=== PATIENT | female | born 1990 | race Caucasian/White ===

== ENCOUNTER → 2016-08-25 | Outpatient (CLI) | payer OTHER ==
--- NOTE | 2016-08-25 16:01 | MR ---
EXAMINATION TYPE: MR sacroiliac joints wo/w con DATE OF EXAM: 08/25/2016 3:41 PM COMPARISON: Sacrum and coccyx x-ray November 13, 2015. HISTORY: History of fibromyalgia presents with back pain, and sacroiliac joint pain per patient. Sacr oiliitis per order. CONTRAST: Standard multiplanar, multisequence MRI departmental protocol utilizing 20 mL intravenous MultiHance gadolinium contrast. Exam is performed of the pelvis focus on sacroiliac joints. FINDINGS: Sacroiliac joints appear symmetric and felt within normal limits. Bone marrow signal intens ity shows no suspicious edema or enhancement. No significant erosive or cystic changes identified. No significant spurring is seen. Visualized portion of bladder is within normal limits. Visualized portion of uterus and cervix is fel t unremarkable. Both ovaries are seen and are normal in size with scattered peripheral follicles. Vis ualized bowel shows no suspicious dilatation. No concerning pelvic adenopathy is seen. No worrisome p elvic fluid collection is noted. IMPRESSION: No MRI evidence for acute or chronic inflammatory change identified at level of the sacroiliac joints .
== END | disposition home or self-care (01) ==
LOC: RADMRIMAIN 14:22
PROVIDERS: ATTEND Internal Medicine Rheumatology
DX: M46.1 Sacroiliitis, not elsewhere classified (principal)
CPT/HCPCS: 72197; A9577

== ENCOUNTER 2016-10-10 13:09 | Emergency (ER) | payer OTHER ==
[2016-10-10 13:45] VITALS: BP 117/80; PULSE 86; RESP 16; TEMP 98.1
--- NOTE | 2016-10-10 14:33 | ED ---
Lower Extremity Injury HPI - General Chief Complaint: Extremity Injury, Lower Stated Complaint: Foot Pain/Fall Time Seen by Provider: 10/10/16 14:18 Source: patient, RN notes reviewed Mode of arrival: wheelchair Limitations: no limitations - History of Present Illness Initial Comments: This a 26-year-old female presents emergency Department chief complaint left foot pain. She states that she was going down her porch steps states that she twisted her foot and states that she has lateral foot pain. There is some bruising and swelling noted. Patient had no prior fractures. Patient denies any numbness or tingling. Denies any head injury no LOC and denies any other muscle skeletal injuries. - Related Data Home Medications Medication Instructions Recorded Confirmed Ergocalciferol [Vitamin D2] 50,000 unit PO Q30D 10/10/16 10/10/16 Previous Rx's Medication Instructions Recorded Hydrocodone/Acetaminophen [[place] 1 tab PO Q6HR PRN #15 tab 10/10/16 5-325] Allergies Allergy/AdvReac Type Severity Reaction Status Date / Time Penicillins Allergy Unknown Verified 10/10/16 14:43 Sulfa (Sulfonamide Allergy Unknown Verified 10/10/16 14:43 Antibiotics) Review of Systems ROS Statement: Those systems with pertinent positive or pertinent negative responses have been documented in the HPI. ROS Other: All systems not noted in ROS Statement are negative. Past Medical History Past Medical History: No Reported History History of Any Multi-Drug Resistant Organisms: None Reported Past Surgical History: No Surgical Hx Reported Past Psychological History: No Psychological Hx Reported Smoking Status: Never smoker Past Alcohol Use History: None Reported Past Drug Use History: None Reported General Exam Limitations: no limitations General appearance: alert, in no apparent distress Respiratory exam: Present: normal lung sounds bilaterally. Absent: respiratory distress, wheezes, rales, rhonchi, stridor Cardiovascular Exam: Present: regular rate, normal rhythm, normal heart sounds. Absent: systolic murmur, diastolic murmur, rubs, gallop, clicks Extremities exam: Present: other (Left foot there is a large area of ecchymosis noted over the lateral to mid foot there is tenderness over this area there is no digit tenderness there is good capillary refill less than 2 seconds there is no tenderness over left ankle over the malleolus.) Skin exam: Present: warm, dry, intact, normal color. Absent: rash Course Vital Signs 10/10/16 13:42 Temperature 98.1 F Pulse Rate 86 Respiratory 16 Rate Blood Pressure 117/80 O2 Sat by Pulse 99 Oximetry Procedures - Orthopedic Splinting/Casting Injury #1 Side: left Lower Extremity Injury Location: foot Lower Extremity Immobilizer: posterior splint (Short leg neurovascular Intact before and after procedure) Medical Decision Making - Medical Decision Making 26-year-old female presented for left foot pain. There is a fracture noted of the fifth metatarsal. Patient was placed in a OCL splint will follow-up with on -call orthopedics. Return parameters discussed. Disposition Clinical Impression: Foot fracture, left Disposition: HOME SELF-CARE Condition: Stable Instructions: Foot Fracture in Adults (ED) Additional Instructions: Please return to the Emergency Department if symptoms worsen or any other concerns. Prescriptions: Hydrocodone/Acetaminophen [[place] 5-325] 1 tab PO Q6HR PRN #15 tab PRN Reason: Pain Referrals: Tameka Washburn MD [Primary Care Provider] - 1-2 days Eze White MD [STAFF PHYSICIAN] - 1-2 days Time of Disposition: 15:18
--- NOTE | 2016-10-10 14:59 | XR ---
EXAMINATION TYPE: XR foot complete LT DATE OF EXAM: 10/10/2016 CLINICAL HISTORY: Trip and fall injury last night with pain TECHNIQUE: Frontal, lateral, and oblique images of the left foot are obtained. COMPARISON: None FINDINGS: There is flexion and varus positioning of distal third through fifth toes. Additional flexi on in second toe is present. There is acute oblique nondisplaced fracture distal diaphysis fifth meta tarsal seen on AP and oblique images. The joint spaces in the left foot appear within normal limits. Bipartite first medial sesamoid noted. The overlying soft tissue appears unremarkable. IMPRESSION: There is acute nondisplaced oblique fracture distal diaphysis fifth metatarsal in left f oot. (Initial encounter closed type post traumatic fracture)
== END 2016-10-10 15:53 | disposition home or self-care (01) ==
LOC: EC 13:09
DX: S92.355A Nondisplaced fracture of fifth metatarsal bone, left foot, initial encounter for closed fracture (principal); Z88.0 Allergy status to penicillin; Z88.2 Allergy status to sulfonamides; Z79.899 Other long term (current) drug therapy; X50.9XXA Other and unspecified overexertion or strenuous movements or postures, initial encounter
CPT/HCPCS: 29515; 99283

== ENCOUNTER → 2016-11-07 | Outpatient (CLI) | payer OTHER ==
--- NOTE | 2016-11-07 15:49 | CT ---
EXAMINATION TYPE: CT foot LT wo con DATE OF EXAM: 11/07/2016 COMPARISON: Left foot x-ray October 10, 2016. Outside left foot x-ray November 03, 2016 HISTORY: F/U for 5th metatarsal fx CT DLP: 232 mGycm Automated exposure control for dose reduction was used. FINDINGS: There is persistent linear lucency consistent with acute comminuted minimally displaced fracture thro ugh the fifth metatarsal head. No significant interval healing or change in alignment is present. Mil d adjacent subcutaneous edema along lateral margin is present. Remainder of left foot shows flexion in the toes without additional acute fracture or dislocation. Li sfranc joints are maintained. Normal sinus tarsi fat is seen. Peroneal tendons are felt intact seen b est on sagittal images though there is some thickening and increased signal in the brevis tendon note d at level of lateral malleolus suggesting tendinosis and tenosynovitis. IMPRESSION: ABOVE
== END | disposition home or self-care (01) ==
LOC: RADCTMAIN 15:04
PROVIDERS: ATTEND Orthopaedic Surgery
DX: S92.355D Nondisplaced fracture of fifth metatarsal bone, left foot, subsequent encounter for fracture with routine healing (principal)

== ENCOUNTER 2016-11-27 16:04 | Emergency (ER) | payer OTHER ==
[2016-11-27 16:15] VITALS: RESP 18
--- NOTE | 2016-11-27 16:46 | ED ---
Lower Extremity Injury HPI - General Chief Complaint: Extremity Injury, Lower Stated Complaint: fall/foot pain Time Seen by Provider: 11/27/16 16:16 Source: patient Mode of arrival: ambulatory Limitations: no limitations - History of Present Illness Initial Comments: 26-year-old presents with right ankle foot pain and left knee pain that occurred just prior to arrival. Patient states she slipped on some ice at [place] and fell directly on her left knee and rolled her right ankle everted it. Patient states she has had a history of a right foot fracture in the past. Patient states she has not really been able to ambulate. No numbness or tingling. Patient has been icing it but no medications have been used. Patient denies any hip pain head and neck are back pain. MD Complaint: knee injury (left), ankle injury (ankle) Context: fall Treatments Prior to Arrival: cold therapy - Related Data Home Medications Medication Instructions Recorded Confirmed Cholecalciferol [Vitamin D3] 1,000 unit PO DAILY 11/27/16 11/27/16 Previous Rx's Medication Instructions Recorded Acetaminophen with Codeine 1 each PO Q4H PRN #20 tab 11/27/16 [Tylenol w/codeine #3] Ibuprofen [Motrin] 600 mg PO Q6HR PRN #20 tab 11/27/16 Allergies Allergy/AdvReac Type Severity Reaction Status Date / Time Penicillins Allergy Unknown Verified 11/27/16 16:56 Sulfa (Sulfonamide Allergy Unknown Verified 11/27/16 16:56 Antibiotics) Review of Systems ROS Statement: Those systems with pertinent positive or pertinent negative responses have been documented in the HPI. ROS Other: All systems not noted in ROS Statement are negative. Neurological: Reports: abnormal gait. Denies: weakness, numbness, paresthesias Past Medical History Past Medical History: No Reported History History of Any Multi-Drug Resistant Organisms: None Reported Past Surgical History: No Surgical Hx Reported Past Psychological History: No Psychological Hx Reported Smoking Status: Never smoker Past Alcohol Use History: None Reported Past Drug Use History: None Reported General Exam Limitations: no limitations General appearance: alert, in no apparent distress Left Upper Leg exam: Present: normal inspection, full ROM. Absent: tenderness, swelling Knee exam: Present: normal inspection, full ROM, tenderness (patellar). Absent : swelling, abrasion Lower Leg exam: Present: normal inspection, full ROM. Absent: tenderness, abrasion Right Hip exam: Present: normal inspection, full ROM. Absent: tenderness, swelling Upper Leg exam: Present: normal inspection, full ROM. Absent: tenderness, swelling Knee exam: Present: normal inspection, full ROM. Absent: tenderness, swelling Lower Leg exam: Present: normal inspection, full ROM. Absent: tenderness, swelling Ankle exam: Present: normal inspection, tenderness (lateral), swelling (lateral) . Absent: full ROM Foot/Toe exam: Present: normal inspection, full ROM, tenderness (lateral), swelling (lateral) Neurological exam: Present: alert, oriented X3, CN II-XII intact Psychiatric exam: Present: normal affect, normal mood Skin exam: Present: warm, dry, intact, normal color. Absent: rash Course Vital Signs 11/27/16 16:12 Temperature 98.0 F Pulse Rate 99 Respiratory 18 Rate Blood Pressure 128/83 O2 Sat by Pulse 98 Oximetry Medical Decision Making - Medical Decision Making Reviewed x-ray negative for any acute changes. Patient be given Aircast Disposition Clinical Impression: Ankle sprain, Contusion Disposition: HOME SELF-CARE Condition: Good Instructions: Ankle Sprain (ED), Foot Contusion (ED) Prescriptions: Ibuprofen [Motrin] 600 mg PO Q6HR PRN #20 tab PRN Reason: Pain Acetaminophen with Codeine [Tylenol w/codeine #3] 1 each PO Q4H PRN #20 tab PRN Reason: Pain Referrals: Tameka Washburn MD [Primary Care Provider] - 1-2 days Eze White MD [STAFF PHYSICIAN] - 1-2 days Time of Disposition: 17:06
--- NOTE | 2016-11-27 16:58 | XR ---
EXAMINATION TYPE: XR knee 4V LT DATE OF EXAM: 11/27/2016 COMPARISON: NONE HISTORY: Pain after a fall TECHNIQUE: 4 views FINDINGS: I see no fracture nor dislocation. Joint spaces are normal. There is no sign of a joint eff usion. IMPRESSION: Normal left knee
--- NOTE | 2016-11-27 16:59 | XR ---
EXAMINATION TYPE: XR ankle complete RT DATE OF EXAM: 11/27/2016 COMPARISON: NONE HISTORY: Pain TECHNIQUE: 3 views FINDINGS: I see no fracture nor dislocation. Ankle mortise is anatomic. IMPRESSION: Negative right ankle exam.
--- NOTE | 2016-11-27 17:00 | XR ---
EXAMINATION TYPE: XR foot complete RT DATE OF EXAM: 11/27/2016 COMPARISON: NONE HISTORY: Pain after a fall TECHNIQUE: 3 views FINDINGS: There is an old fracture of the distal fifth metatarsal. I see no acute fracture nor disloc ation. Joint spaces are normal. There are no erosions. IMPRESSION: No acute abnormality of the right foot.
[2016-11-27] MEDS ORDERED: Acetaminophen-Codeine 300-30mg TAB PO STA (17:03)
[2016-11-27 17:26] VITALS: BP 125/68; PULSE 92; TEMP 98
== END 2016-11-27 17:25 | disposition home or self-care (01) ==
LOC: EC 16:04
DX: S93.401A Sprain of unspecified ligament of right ankle, initial encounter (principal); S99.921A Unspecified injury of right foot, initial encounter; S89.92XA Unspecified injury of left lower leg, initial encounter; Z79.899 Other long term (current) drug therapy; Z88.0 Allergy status to penicillin; Z88.2 Allergy status to sulfonamides; X50.1XXA Overexertion from prolonged static or awkward postures, initial encounter; Y92.89 Other specified places as the place of occurrence of the external cause
CPT/HCPCS: 99283

== ENCOUNTER → 2017-01-02 | Outpatient (CLI) | payer OTHER ==
--- NOTE | 2017-01-02 17:35 | US ---
EXAMINATION TYPE: US transvaginal DATE OF EXAM: 01/02/2017 COMPARISON: CLINICAL HISTORY: N93.9 Abnormal Uterine Bleeding. Patient states bleeding for 40 days in October, LLQ p ain during that time TECHNIQUE: Transvaginal (TV) Date of LMP: 12/27/2016, G0 EXAM MEASUREMENTS: Uterus: 6.8 x 4.7 x 3.1 cm Endometrial Stripe: 0.6 cm Right Ovary: 2.7 x 2.9 x 2.2 cm Left Ovary: 2.9 x 1.9 x 1.6 cm 1. Uterus: Anteverted wnl 2. Endometrium: wnl 3. Right Ovary: follicles seen 4. Left Ovary: follicles seen 6. Posterior cul-de-sac: no free fluid Cervix- wnl IMPRESSION: Normal uterus and endometrium. No adnexal mass.
== END | disposition home or self-care (01) ==
LOC: RADUSWWP 17:03
PROVIDERS: ATTEND Family Medicine
DX: N93.9 Abnormal uterine and vaginal bleeding, unspecified (principal)
CPT/HCPCS: 76830

== ENCOUNTER 2017-04-26 20:38 | Emergency (ER) | payer OTHER ==
[2017-04-26] MEDS ORDERED: IBUPROFEN 600 MG TAB PO STA (21:03)
--- NOTE | 2017-04-26 21:12 | ED ---
Fall HPI - General Chief Complaint: Fall Stated Complaint: Fall/Foot Pain Time Seen by Provider: 04/26/17 20:58 Source: patient, RN notes reviewed Mode of arrival: wheelchair - History of Present Illness Initial Comments: This is a 26-year-old female who presents to the emergency department with chief complaint of left ankle injury. Patient states that at approximately 3 or 4 this afternoon she slipped on water on the floor at her house. Her left ankle twisted inward. Patient states that she has a history of bilateral broken feet and that this pain is worse than that. She states that she laid on the floor for 10-15 minutes and then was able to get up. She states that she lives with her grandmother so used her walker to ambulate around the home. Patient states that she is able to bear weight but the pain progressively worsens. Denies any other injuries. Denies fever, chills, chest pain, shortness of breath, abdominal pain, nausea or vomiting, constipation or diarrhea, dysuria or hematuria, numbness or tingling, headache or vision changes. - Related Data Home Medications Medication Instructions Recorded Confirmed Cholecalciferol [Vitamin D3] 1,000 unit PO DAILY 11/27/16 11/27/16 Previous Rx's Medication Instructions Recorded Acetaminophen with Codeine 1 each PO Q4H PRN #20 tab 11/27/16 [Tylenol w/codeine #3] Ibuprofen [Motrin] 600 mg PO Q6HR PRN #20 tab 11/27/16 Allergies Allergy/AdvReac Type Severity Reaction Status Date / Time Penicillins Allergy Unknown Verified 04/26/17 20:53 Sulfa (Sulfonamide Allergy Unknown Verified 04/26/17 20:53 Antibiotics) Review of Systems ROS Statement: Those systems with pertinent positive or pertinent negative responses have been documented in the HPI. ROS Other: All systems not noted in ROS Statement are negative. Past Medical History Past Medical History: No Reported History History of Any Multi-Drug Resistant Organisms: None Reported Past Surgical History: No Surgical Hx Reported Past Psychological History: No Psychological Hx Reported Smoking Status: Never smoker Past Alcohol Use History: None Reported Past Drug Use History: None Reported General Exam - General Exam Comments Initial Comments: General: Awake and alert, well-developed; in no apparent distress. HEENT: Head atraumatic, normocephalic. Pupils are equal, round and reactive to light. Extraocular movements intact. Oropharynx moist without erythema or exudate. Neck: Supple. Normal ROM. Cardiovascular: Regular rate and rhythm. No murmurs, rubs or gallops. Chest symmetrical. Respiratory: Lungs clear to auscultation bilaterally. No wheezes, rales or rhonchi. Normal respiratory effort with no use of accessory muscles. Musculoskeletal: Normal ROM of left ankle and toes. There is mild tissue swelling and ecchymosis mid lateral left foot. Sensation is intact. Tenderness with inversion of the ankle. Pedal pulses are 2+ equal and palpable bilaterally. Skin: [place], warm and dry without rashes or lesions. Neurological: Alert and oriented x3. CN II-XII grossly intact. Speech is fluent and answers are appropriate. No focal neuro deficits. Psychiatric: Normal mood and affect. No overt signs of depression or anxiety noted. Limitations: no limitations Course Vital Signs 04/26/17 20:50 Temperature 97.6 F Pulse Rate 86 Respiratory 18 Rate Blood Pressure 115/74 O2 Sat by Pulse 100 Oximetry Medical Decision Making - Medical Decision Making This is a 26-year-old female who presents to the emergency department with chief complaint of left foot injury. Patient has normal range of motion and is neurovascularly intact. X-ray revealed no acute fractures or dislocations of the ankle or foot. Grupo bandage was placed and patient tolerated well without complication. She'll be discharged home with recommendation to ice, elevate and take ibuprofen or Tylenol as needed. Return parameters were discussed. Patient is in agreement and voices understanding. All questions were answered. - Radiology Data Radiology results: report reviewed X-ray left foot impression: Negative left foot exam. No sign of inflammatory arthritis. There is evidence of old healed fracture of the distal fifth metatarsal. X-ray left ankle impression: Mild calcaneal spurring. No fracture. Disposition Clinical Impression: Foot contusion Disposition: HOME SELF-CARE Condition: Good Instructions: Foot Contusion (ED) Additional Instructions: Please rest, ice, elevate and take ibuprofen or Tylenol as needed. Please follow up with primary care provider within 1-2 days. Return to emergency department if symptoms should worsen or any concerns arise. Referrals: Tameka Washburn MD [Primary Care Provider] - 1-2 days Time of Disposition: 21:49
--- NOTE | 2017-04-26 21:34 | XR ---
EXAMINATION TYPE: XR ankle complete LT DATE OF EXAM: 04/26/2017 COMPARISON: NONE HISTORY: Pain TECHNIQUE: 3 views FINDINGS: There are small plantar and Achilles calcaneal spurs. I see no fracture nor dislocation. An kle mortise is anatomic. IMPRESSION: Mild calcaneal spurring. No fracture.
--- NOTE | 2017-04-26 21:35 | XR ---
EXAMINATION TYPE: XR foot complete LT DATE OF EXAM: 04/26/2017 COMPARISON: NONE HISTORY: Pain TECHNIQUE: 3 views FINDINGS: I see no fracture nor dislocation. Joint spaces are normal. Metatarsals are intact. IMPRESSION: Negative left foot exam. No sign of inflammatory arthritis. There is evidence of old heal ed fracture of the distal fifth metatarsal.
[2017-04-26 23:37] VITALS: BP 115/74; PULSE 86; RESP 18; TEMP 97.6
== END 2017-04-26 21:56 | disposition home or self-care (01) ==
LOC: EC 20:38
DX: S90.32XA Contusion of left foot, initial encounter (principal); Z79.899 Other long term (current) drug therapy; Z88.0 Allergy status to penicillin; Z88.2 Allergy status to sulfonamides; W01.0XXA Fall on same level from slipping, tripping and stumbling without subsequent striking against object, initial encounter; Y92.009 Unspecified place in unspecified non-institutional (private) residence as the place of occurrence of the external cause
CPT/HCPCS: 99283

== ENCOUNTER 2017-09-20 18:59 | Emergency (ER) | payer OTHER ==
[2017-09-20] MEDS ORDERED: IBUPROFEN 600 MG TAB PO STA (20:59)
[2017-09-20] MEDS ORDERED: ACETAMINOPHEN TAB 500 MG TAB PO STA (20:59)
[2017-09-20] MEDS ORDERED: IPRATROPIUM-ALBUTEROL 3 ML NEB INHALATION STA (21:26)
[2017-09-20] MEDS ORDERED: ONDANSETRON ODT 4 MG TAB PO STA (21:26)
[2017-09-20] MEDS ORDERED: guaiFENesin-DM 600/30MG 1 EACH TAB.ER.12H PO STA (22:03)
--- NOTE | 2017-09-20 22:04 | ED ---
Nausea/Vomiting/Diarrhea HPI - General Chief complaint: Nausea/Vomiting/Diarrhea Stated complaint: Congested, Fever, Vomiting Time Seen by Provider: 09/20/17 20:40 Source: patient, RN notes reviewed, old records reviewed Mode of arrival: ambulatory Limitations: no limitations - History of Present Illness Initial comments: 26-year-old female presents emergency Department today chief complaint of fever or chills sinus congestion. Patient states that her symptoms started last and today. She did have a few episodes of vomiting. Patient that she has as a cough. No history of asthma. She does not some minor wheezing. Patient states that she has no history of sick contacts. - Related Data Home Medications Medication Instructions Recorded Confirmed Gabapentin [Neurontin] 300 mg PO TID 09/20/17 09/20/17 SUMAtriptan SUCCINATE [Imitrex] 50 mg PO DAILY PRN 09/20/17 09/20/17 Previous Rx's Medication Instructions Recorded Albuterol Inhaler [Ventolin Hfa 1 - 2 puff INHALATION RT-Q6H PRN 09/20/17 Inhaler] #1 inhaler Azithromycin [Zithromax Z-pack] 250 mg PO DIRECTED #6 tab 09/20/17 Ondansetron Odt [Zofran Odt] 4 mg PO Q8HR PRN #12 tab 09/20/17 guaiFENesin [Mucinex] 1,200 mg PO BID #20 tbmp.12hr 09/20/17 methylPREDNISolone Dose Pack 4 mg PO DIRECTED #21 package 09/20/17 [Medrol Dose Pack] Allergies Allergy/AdvReac Type Severity Reaction Status Date / Time Penicillins Allergy Unknown Verified 09/20/17 21:14 Sulfa (Sulfonamide Allergy Unknown Verified 09/20/17 21:14 Antibiotics) Review of Systems ROS Statement: Those systems with pertinent positive or pertinent negative responses have been documented in the HPI. ROS Other: All systems not noted in ROS Statement are negative. Past Medical History Past Medical History: No Reported History Additional Past Medical History / Comment(s): fibromyalgia History of Any Multi-Drug Resistant Organisms: None Reported Past Surgical History: No Surgical Hx Reported Past Psychological History: No Psychological Hx Reported Smoking Status: Never smoker Past Alcohol Use History: None Reported Past Drug Use History: None Reported General Exam - General Exam Comments Initial Comments: 26-year-old female. Alert and oriented. No significant distress. Limitations: no limitations General appearance: alert, in no apparent distress Head exam: Present: atraumatic, normocephalic, normal inspection Eye exam: Present: normal appearance, PERRL, EOMI. Absent: scleral icterus, conjunctival injection, periorbital swelling ENT exam: Present: normal exam, mucous membranes moist Neck exam: Present: normal inspection. Absent: tenderness, meningismus, lymphadenopathy Respiratory exam: Present: normal lung sounds bilaterally. Absent: respiratory distress, wheezes, rales, rhonchi, stridor Cardiovascular Exam: Present: regular rate GI/Abdominal exam: Present: soft, normal bowel sounds. Absent: distended, tenderness, guarding, rebound, rigid Course Vital Signs 09/20/17 09/20/17 09/20/17 19:21 21:40 21:51 Temperature 102.4 F H Pulse Rate 114 H 106 H 102 H Respiratory 20 Rate Blood Pressure 132/83 O2 Sat by Pulse 100 Oximetry 09/20/17 21:56 Temperature Pulse Rate 99 Respiratory 20 Rate Blood Pressure 143/75 O2 Sat by Pulse 97 Oximetry Medical Decision Making - Lab Data Lab Results 09/20/17 09/20/17 Range/Units 21:20 22:18 Influenza Type A RNA Not Detected (Not Detectd) Influenza Type B (PCR) Not Detected (Not Detectd) Group A Strep Rapid Negative (Negative) - Radiology Data Radiology results: report reviewed Chest x-ray was reviewed and negative for any acute process. Disposition Clinical Impression: Sinusitis, Bronchitis Disposition: HOME SELF-CARE Condition: Good Instructions: Sinusitis (ED), Upper Respiratory Infection (ED) Additional Instructions: Patient has follow-up with primary care provider. Return to the emergency department if any alarming signs or symptoms occur. Prescriptions: Albuterol Inhaler [Ventolin Hfa Inhaler] 1 - 2 puff INHALATION RT-Q6H PRN #1 inhaler PRN Reason: Shortness Of Breath Azithromycin [Zithromax Z-pack] 250 mg PO DIRECTED #6 tab guaiFENesin [Mucinex] 1,200 mg PO BID #20 tbmp.12hr methylPREDNISolone Dose Pack [Medrol Dose Pack] 4 mg PO DIRECTED #21 package Ondansetron Odt [Zofran Odt] 4 mg PO Q8HR PRN #12 tab PRN Reason: Nausea Is patient prescribed a controlled substance at d/c from ED?: No When asked, does pt state using other controlled substances?: No If prescribed controlled substance>3 days was MAPS reviewed?: No If opioid is for acute pain is fill amount 7 days or less?: No If Rx opioid, was Start Talking consent form obtained?: No Referrals: Tameka Washburn MD [Primary Care Provider] - 1-2 days Time of Disposition: 22:55
--- NOTE | 2017-09-20 22:17 | XR ---
EXAMINATION TYPE: XR chest 2V DATE OF EXAM: 09/20/2017 COMPARISON: NONE HISTORY: Cough TECHNIQUE: Frontal and lateral views of the chest are obtained. FINDINGS: Heart and mediastinum are normal. Lungs are clear. Diaphragm is normal. Bony thorax appear s normal. IMPRESSION: Normal chest
[2017-09-20] MEDS ORDERED: AZITHROMYCIN 500 MG TAB PO STA (22:58)
[2017-09-20 23:56] VITALS: BP 122/73; PULSE 89; RESP 18; TEMP 96.8
== END 2017-09-20 23:54 | disposition home or self-care (01) ==
LOC: EC 18:59
DX: J32.9 Chronic sinusitis, unspecified (principal); J40 Bronchitis, not specified as acute or chronic; M79.7 Fibromyalgia; Z79.899 Other long term (current) drug therapy; Z88.0 Allergy status to penicillin; Z88.2 Allergy status to sulfonamides
CPT/HCPCS: 71046; 87430; 87502; 94640; 99284

== ENCOUNTER → 2018-12-26 | Outpatient (CLI) | payer OTHER ==
[2018-12-26 14:08] LABS: Basophils # (A) 0.1 k/uL (0-0.2); Basophils % (A) 1 %; Eosinophils # (A) 0.1 k/uL (0-0.7); Eosinophils % (A) 2 %; HCT 39.7 % (34.0-46.0); HGB 13.2 gm/dL (11.4-16.0); Lymphocytes # (A) 2.4 k/uL (1.0-4.8); Lymphocytes % (A) 35 %; MCH 28.8 pg (25.0-35.0); MCHC 33.3 g/dL (31.0-37.0); MCV 86.5 fL (80.0-100.0); Mean Platelet Volume 6.8; Monocytes # (A) 0.3 k/uL (0-1.0); Monocytes % (A) 5 %; Neutrophils # (A) 3.6 k/uL (1.3-7.7); Neutrophils % (A) 54 %; Platelet Count 329 k/uL (150-450); RBC 4.59 m/uL (3.80-5.40); RDW 13.3 % (11.5-15.5); WBC 6.7 k/uL (3.8-10.6)
[2018-12-26 14:13] LABS: INR 0.9 (<1.2); Partial Thromboplastin Time 27.9 sec (22.0-30.0); Prothrombin Time 10.2 sec (9.0-12.0)
[2018-12-26 14:15] LABS: Appearance,Urine Clear (Clear); Bilirubin,Urine Negative (Negative); Blood,Urine Negative (Negative); Color,Urine Yellow; Glucose,Urine (UA) Negative (Negative); Ketones,Urine Negative (Negative); Leukocyte Esterase,Urine Negative (Negative); Nitrite,Urine Negative (Negative); PH, Urine 5.5 (5.0-8.0); Protein,Urine Negative (Negative); Specific Gravity,Urine 1.023 (1.001-1.035); Urobilinogen,Urine <2.0 mg/dL (<2.0)
[2018-12-26 20:08] LABS: African American GFR (CKD) 142.8 (60.0-200.0); Anion Gap 5.7 mmol/L (4.00-12.00); Carbon Dioxide 28.3 mmol/L (21.6-31.8); Potassium 4.5 mmol/L (3.5-5.5); Total Bilirubin 0.2 mg/dL (0.2-1.2)
== END | disposition home or self-care (01) ==
LOC: LABWHC1 13:19
PROVIDERS: ATTEND Neurological Surgery
DX: Q07.9 Congenital malformation of nervous system, unspecified (principal)
CPT/HCPCS: 36415; 80051; 81003; 82247; 82565; 82947; 84450; 84460; 84520; 85025; 85610; 85730

== ENCOUNTER 2019-04-26 15:54 | Emergency (ER) | payer OTHER ==
[2019-04-26 16:21] VITALS: BP 124/94; PULSE 96; RESP 18; TEMP 97.9
[2019-04-26] MEDS ORDERED: CEPHALEXIN 500MG STARTER PACK 4 CAP BTL PO STA (17:03)
[2019-04-26] MEDS ORDERED: LIDOCAINE/EPINEPHR/TETRACAINE 5 ML BOTTLE TOPICAL ONE (17:03)
[2019-04-26] MEDS ORDERED: MORPHINE SULFATE 2 MG/ML SYRINGE IM STA (17:03)
[2019-04-26] MEDS ORDERED: LIDOCAINE 1% INJ 10MG/ML (20 ML MDV) SQ ONE (18:17)
--- NOTE | 2019-04-26 19:14 | ED ---
Skin/Abscess/FB HPI - General Chief complaint: Skin/Abscess/Foreign Body Stated complaint: cyst/pain & infection Time Seen by Provider: 04/26/19 16:47 Source: patient Mode of arrival: ambulatory Limitations: no limitations - History of Present Illness Initial comments: 28-year-old female presents today for chief complaint of abscess on abdomen x 5 days. Patient states that she is history of cyst she states she gets them in the groin and under the airpits and has to have them drained. Patient states she began noticing a large cyst on her right mid abdomen near a skin flap. She states that has been increasing in redness since then and now is very painful she cannot tolerate the pain and presented to the emergency department do not feel dictated with her primary care for evaluation. Patient denies flulike symptoms. Patient is afebrile appearing on arrival. - Related Data Home Medications Medication Instructions Recorded Confirmed Gabapentin [Neurontin] 300 mg PO TID 09/20/17 09/20/17 SUMAtriptan SUCCINATE [Imitrex] 50 mg PO DAILY PRN 09/20/17 09/20/17 Previous Rx's Medication Instructions Recorded Albuterol Inhaler [Ventolin Hfa 1 - 2 puff INHALATION RT-Q6H PRN 09/20/17 Inhaler] #1 inhaler Azithromycin [Zithromax Z-pack] 250 mg PO DIRECTED #6 tab 09/20/17 Ondansetron Odt [Zofran Odt] 4 mg PO Q8HR PRN #12 tab 09/20/17 guaiFENesin [Mucinex] 1,200 mg PO BID #20 tbmp.12hr 09/20/17 methylPREDNISolone Dose Pack 4 mg PO DIRECTED #21 package 09/20/17 [Medrol Dose Pack] Cephalexin [Keflex] 500 mg PO Q6HR 7 Days #28 cap 04/26/19 Clindamycin [Cleocin] 300 mg PO Q8H 7 Days #42 capsule 04/26/19 Allergies Allergy/AdvReac Type Severity Reaction Status Date / Time Penicillins Allergy Unknown Verified 04/26/19 16:17 Sulfa (Sulfonamide Allergy Unknown Verified 04/26/19 16:17 Antibiotics) Review of Systems ROS Statement: Those systems with pertinent positive or pertinent negative responses have been documented in the HPI. ROS Other: All systems not noted in ROS Statement are negative. Past Medical History Past Medical History: No Reported History Additional Past Medical History / Comment(s): fibromyalgia History of Any Multi-Drug Resistant Organisms: None Reported Past Surgical History: No Surgical Hx Reported Additional Past Surgical History / Comment(s): crainiotomy, top vertabrea removed Past Psychological History: No Psychological Hx Reported Smoking Status: Never smoker Past Alcohol Use History: None Reported Past Drug Use History: None Reported General Exam - General Exam Comments Initial Comments: General: The patient is awake and alert, in no distress Eye: +3 mm pupils are equal, round and reactive to light, extra-ocular movements are intact. No nystagmus. There is normal conjunctiva bilaterally. No signs of icterus. Ears, nose, mouth and throat: There are moist mucous membranes and no oral lesions. Neck: The neck is supple, there is no tenderness or JVD. Cardiovascular: There is a regular rate and rhythm. No murmur, rub or gallop is appreciated. Respiratory: Lungs are clear to auscultation, respirations are non-labored, breath sounds are equal. No wheezes, stridor, rales, or rhonchi. Gastrointestinal: Soft, non-distended, non-tender abdomen. There is noted erythematous area 5x5 cm with 2 separate areas of fluctuance. No active drainage There is no rebound or guarding present. Musculoskeletal: Normal ROM, no tenderness. Strength 5/5. Sensation intact. Radial pulses equal bilaterally 2+. Neurological: A&O x 3. CN II-XII intact grossly, There are no obvious motor or sensory deficits. Coordination appears grossly intact. Speech is normal. Skin: Skin is warm and dry and no rashes or lesions are noted. Psychiatric: Cooperative, appropriate mood & affect, normal judgment. Limitations: no limitations Course Vital Signs 04/26/19 16:18 Temperature 97.9 F Pulse Rate 96 Respiratory 18 Rate Blood Pressure 124/94 O2 Sat by Pulse 95 Oximetry Procedures - Incision & Drainage Consent Obtained: verbal consent Indication: abdominal cutaneous abscess Site: abdomen Size (cm): 5 Anesthetic Used: lidocaine 1% Amount (mLs): 1 I&D Cleaning Method: Iodine Sterile Field Used?: Yes Scalpel Used: #11 Needle Aspiration Performed?: Yes Irrigation Performed?: No I&D Drainage Obtained: Pus (9cc), Blood (very small amount) Culture Obtained?: Yes Patient Tolerated Procedure: well, no complications Medical Decision Making - Medical Decision Making 28yo female presenting to the ER today for cc of abscess, abscess drainage, mild surrounding cellulitis. patient experienced symptomatic relief in comparison with presentation. Patient will be discharged on abx with PCP f/u and strict return parameters. Patient cultures pending.patient does not appears toxic, afebrile. Patient discharged appearing well after discussing the case with Dr. Castellon. Disposition Clinical Impression: Abscess Disposition: HOME SELF-CARE Condition: Good Instructions (If sedation given, give patient instructions): Abscess Incision and Drainage (ED) Additional Instructions: Please use medication as discussed. Please follow-up with family doctor in the next 2 days of symptoms have not improved. Please return to emergency room if the symptoms increase or worsen or for any other concerns-fevers, incresing pain swelling, or spreading of redness warrants immediate return to the emergency department for evaluation. Prescriptions: Clindamycin [Cleocin] 300 mg PO Q8H 7 Days #42 capsule Cephalexin [Keflex] 500 mg PO Q6HR 7 Days #28 cap Is patient prescribed a controlled substance at d/c from ED?: No Referrals: Tameka Washburn MD [Primary Care Provider] - 1-2 days Time of Disposition: 19:13
== END 2019-04-26 19:40 | disposition home or self-care (01) ==
LOC: EC 15:54
DX: L02.211 Cutaneous abscess of abdominal wall (principal); M79.7 Fibromyalgia; Z88.0 Allergy status to penicillin; Z88.2 Allergy status to sulfonamides; Z79.899 Other long term (current) drug therapy
CPT/HCPCS: 87070; 87205; 99283; 10060; 96372; J2001; J2270

== ENCOUNTER 2019-11-07 19:00 | Emergency (ER) | payer OTHER ==
[2019-11-07 19:06] VITALS: RESP 18; TEMP 98
[2019-11-07] MEDS ORDERED: diphenhydrAMINE 50 MG/ML 1 ML VIAL IVP STA (19:15)
[2019-11-07] MEDS ORDERED: KETOROLAC 30 MG/ML 1 ML VIAL IVP STA (19:15)
[2019-11-07] MEDS ORDERED: METOCLOPRAMIDE 5 MG/ML 2 ML VIAL IVP STA (19:15)
[2019-11-07] MEDS ORDERED: SODIUM CHLORIDE 0.9% 1,000 ML IV STA (19:15)
--- NOTE | 2019-11-07 19:24 | ED ---
Headache HPI - General Chief Complaint: Headache Stated Complaint: migraine Time Seen by Provider: 11/07/19 19:09 Mode of arrival: ambulatory Limitations: no limitations - History of Present Illness Initial Comments: 29-year-old female patient with past medical history significant for Chiari malformation status post craniotomy in December 2018 presents to the emergency department today for evaluation of headache. Patient states that this current headache has been present since early this morning and has been unrelenting. States that she has taken her usual medications and it has not helped. She is having associated nausea, light sensitivity, and unsteadiness. She denies any dizziness, fever, chills, or back pain. She denies any blurred or double vision. Denies numbness or tingling to her extremities. Denies any recent head injury. States that she started getting headaches again approximately 2 months ago and states they have been frequent almost every other day. States that she does have an appointment coming up with her neurologist but has not yet followed up. Patient denies any recent rash, cough, shortness of breath, chest pain, abdominal pain, diarrhea, constipation, hematuria, dysuria, urinary urgency, urinary frequency, headache, visual changes, or any other complaints. She is unsure if she may be . - Related Data Home Medications Medication Instructions Recorded Confirmed HYDROcodone/APAP 7.5-325MG [[place] 1 tab PO TID PRN 11/07/19 11/07/19 7.5-325] Methocarbamol [Robaxin-750] 750 mg PO TID PRN 11/07/19 11/07/19 Allergies Allergy/AdvReac Type Severity Reaction Status Date / Time amoxicillin [From Amoxil] Allergy Rash/Hives Verified 11/07/19 19:56 Penicillins Allergy Rash/Hives Verified 11/07/19 19:56 Sulfa (Sulfonamide Allergy Unknown Verified 11/07/19 19:56 Antibiotics) Childhood Review of Systems ROS Statement: Those systems with pertinent positive or pertinent negative responses have been documented in the HPI. ROS Other: All systems not noted in ROS Statement are negative. Past Medical History Past Medical History: No Reported History Additional Past Medical History / Comment(s): fibromyalgia History of Any Multi-Drug Resistant Organisms: None Reported Past Surgical History: No Surgical Hx Reported Additional Past Surgical History / Comment(s): crainiotomy, top vertabrea removed Past Psychological History: No Psychological Hx Reported Smoking Status: Never smoker Past Alcohol Use History: None Reported Past Drug Use History: None Reported General Exam Limitations: no limitations General appearance: alert, in no apparent distress, other (This is a well- developed, well-nourished adult female patient in no acute distress. Vital signs upon presentation are temperature 98.0F, pulse 100, respirations 18, blood pressure 114/77, pulse ox 99% on room air.) Eye exam: Present: normal appearance, PERRL, EOMI. Absent: scleral icterus, conjunctival injection, nystagmus, periorbital swelling ENT exam: Present: normal exam, normal oropharynx, mucous membranes moist Respiratory exam: Present: normal lung sounds bilaterally. Absent: respiratory distress, wheezes, rales, rhonchi, stridor Cardiovascular Exam: Present: regular rate, normal rhythm, normal heart sounds. Absent: systolic murmur, diastolic murmur, rubs, gallop, clicks GI/Abdominal exam: Present: soft, normal bowel sounds. Absent: distended, tenderness, guarding, rebound, rigid Neurological exam: Present: alert, oriented X3, CN II-XII intact, other (Strength in all 4 extremities is 5/5.) Psychiatric exam: Present: normal affect, normal mood Skin exam: Present: warm, dry, intact, normal color. Absent: rash Course Vital Signs 11/07/19 19:03 Temperature 98 F Pulse Rate 100 Respiratory 18 Rate Blood Pressure 114/77 O2 Sat by Pulse 99 Oximetry Medical Decision Making - Medical Decision Making 29-year-old female patient presents to the emergency department for evaluation of migraine headache. Patient's is a history of migraines and her symptoms are consistent with her usual pattern. Patient did have some relief after having a decompression of her Chiari malformation with the headache started about 2 months ago. She is neurologically intact with no focal deficits. This is not the worst headache of her life. Upon reevaluation she is resting comfortably in bed. States the pain medicine did help her symptoms. She will be discharged follow-up with her neurologist for further evaluation as soon as possible. She is instructed about the primary care physician for recheck in 1-2 days. Return to the emergency department immediately for any new, worsening, or concerning symptoms. - Lab Data Lab Results 11/07/19 Range/Units 20:12 Urine HCG, Qual Not Detected (Not Detectd) Disposition Clinical Impression: Migraine Disposition: HOME SELF-CARE Condition: Good Instructions (If sedation given, give patient instructions): Migraine Headache (ED) Additional Instructions: Rest. Increase fluids. Follow-up with your neurologist as you have planned. Return to the emergency department immediately for any new, worsening, or concerning symptoms. Is patient prescribed a controlled substance at d/c from ED?: No Referrals: Tameka Washburn MD [Primary Care Provider] - 1-2 days Time of Disposition: 20:36
[2019-11-07] MEDS ORDERED: HYDROmorphone 0.5 MG/0.5 ML SYRINGE IVP STA (20:36)
[2019-11-07 20:48] VITALS: BP 138/81; PULSE 60
== END 2019-11-07 20:52 | disposition home or self-care (01) ==
LOC: EC 19:00
DX: G43.909 Migraine, unspecified, not intractable, without status migrainosus (principal); M79.7 Fibromyalgia; Z88.2 Allergy status to sulfonamides; Z88.0 Allergy status to penicillin; Z98.890 Other specified postprocedural states; Z87.728 Personal history of other specified (corrected) congenital malformations of nervous system and sense organs
CPT/HCPCS: 81025; 99283; 96374; 96375 ×3; 96361; J1200; J2765; J1885; J1170

== ENCOUNTER 2020-02-16 18:55 | Emergency (ER) | payer OTHER ==
[2020-02-16] MEDS ORDERED: SODIUM CHLORIDE 0.9% 1,000 ML IV STA (19:25)
[2020-02-16] MEDS ORDERED: PANTOPRAZOLE 40 MG/10 ML VIAL IVP STA (19:25)
--- NOTE | 2020-02-16 19:31 | ED ---
General Adult HPI - General Chief complaint: Shortness of Breath Stated complaint: sob Time Seen by Provider: 02/16/20 19:01 Source: patient, RN notes reviewed, old records reviewed Mode of arrival: wheelchair Limitations: no limitations - History of Present Illness Initial comments: Patient is a 29-year-old female who presents the emergency department today with 1 week of intermittent episodes of chest pain which initially contributed to heartburn. She reports it seemed to be after eating complaint of burning sensation as well as with some denies any worsening shortness of breath and had nausea and vomiting. She states that she had the episode today. She reports that the episode is always occur with eating. She states that she has no back p ain. She denies significant cough. She reports that sometimes the symptoms in the past such as this have been related to anxiety but reports that this has not seemed to trigger panic attacks for her. Patient states that she does have positive family history of gallbladder disease and cardiac disease. She is a nonsmoker. - Related Data Home Medications Medication Instructions Recorded Confirmed Methocarbamol [Robaxin-750] 750 mg PO TID PRN 11/07/19 02/16/20 Hydrocodone/Acetaminophen [[place] 1 tab PO QID PRN 02/16/20 02/16/20 10-325] Ondansetron HCl [Zofran] 8 mg PO Q8H PRN 02/16/20 02/16/20 SUMAtriptan succinate [Imitrex] 25 mg PO BID PRN 02/16/20 02/16/20 Previous Rx's Medication Instructions Recorded Famotidine [Pepcid] 20 mg PO BID #20 tablet 02/16/20 Ondansetron Odt [Zofran Odt] 4 mg PO Q8HR PRN #12 tab 02/16/20 Allergies Allergy/AdvReac Type Severity Reaction Status Date / Time amoxicillin [From Amoxil] Allergy Rash/Hives Verified 02/16/20 18:58 Penicillins Allergy Rash/Hives Verified 02/16/20 18:58 Sulfa (Sulfonamide Allergy Unknown Verified 02/16/20 18:58 Antibiotics) Childhood Review of Systems ROS Statement: Those systems with pertinent positive or pertinent negative responses have been documented in the HPI. ROS Other: All systems not noted in ROS Statement are negative. Past Medical History Past Medical History: Fibromyalgia Additional Past Medical History / Comment(s): fibromyalgia History of Any Multi-Drug Resistant Organisms: None Reported Past Surgical History: No Surgical Hx Reported Additional Past Surgical History / Comment(s): crainiotomy, top vertabrea removed Past Psychological History: No Psychological Hx Reported Smoking Status: Never smoker Past Alcohol Use History: None Reported Past Drug Use History: None Reported General Exam - General Exam Comments Initial Comments: 29-year-old female. Alert and oriented 3. Patient appears somewhat anxious Limitations: no limitations General appearance: alert, in no apparent distress Head exam: Present: atraumatic, normocephalic, normal inspection Eye exam: Present: normal appearance, PERRL, EOMI. Absent: scleral icterus, conjunctival injection, periorbital swelling ENT exam: Present: normal exam, mucous membranes moist Neck exam: Present: normal inspection. Absent: tenderness, meningismus, lymphadenopathy Respiratory exam: Present: normal lung sounds bilaterally. Absent: respiratory distress, wheezes, rales, rhonchi, stridor Cardiovascular Exam: Present: regular rate, normal rhythm, normal heart sounds. Absent: systolic murmur, diastolic murmur, rubs, gallop, clicks GI/Abdominal exam: Present: soft, normal bowel sounds. Absent: distended, tenderness, guarding, rebound, rigid Extremities exam: Present: normal inspection, full ROM, normal capillary refill. Absent: tenderness, pedal edema, joint swelling, calf tenderness Back exam: Present: normal inspection Neurological exam: Present: alert, oriented X3, CN II-XII intact Psychiatric exam: Present: normal affect, normal mood Skin exam: Present: warm, dry, intact, normal color. Absent: rash Course Vital Signs 02/16/20 18:57 Temperature 98.0 F Pulse Rate 80 Respiratory 24 Rate Blood Pressure 145/84 O2 Sat by Pulse 99 Oximetry - Reevaluation(s) Reevaluation #1: 02/16/20 21:04 Patient is reevaluated and resting comfortably in bed. She appears in no distre ss. Inform Patient of abnormal lab work and EKG finding. Medical Decision Making - Medical Decision Making 29-year-old female presents today with 1 week of intermittent acid reflux description of pain into her chest. She states it seems to worse after eating. Patient was given IV fluids. She had a full cardiac workup revealing negative d-dimer, troponin. Chest x-ray was reviewed and negative for acute process. Patient does feel improved after IV Protonix. All urinalysis and other testing was reviewed to be negative for acute process. Patient informed that her symptoms could likely be related to gastritis gastritis or GERD. We'll start the Patient on protonic medication. Discussed falling up with PCP. - Lab Data Result diagrams: 02/16/20 19:42 02/16/20 19:42 Lab Results 02/16/20 02/16/20 02/16/20 Range/Units 19:42 19:42 19:42 WBC 9.3 (3.8-10.6) k/uL RBC 4.65 (3.80-5.40) m/uL Hgb 13.7 (11.4-16.0) gm/dL Hct 41.7 (34.0-46.0) % MCV 89.6 (80.0-100.0) fL MCH 29.4 (25.0-35.0) pg MCHC 32.8 (31.0-37.0) g/dL RDW 12.8 (11.5-15.5) % Plt Count 334 (150-450) k/uL Neutrophils % 71 % Lymphocytes % 21 % Monocytes % 4 % Eosinophils % 1 % Basophils % 1 % Neutrophils # 6.7 (1.3-7.7) k/uL Lymphocytes # 2.0 (1.0-4.8) k/uL Monocytes # 0.4 (0-1.0) k/uL Eosinophils # 0.1 (0-0.7) k/uL Basophils # 0.1 (0-0.2) k/uL PT 10.3 (9.0-12.0) sec INR 1.0 (<1.2) APTT 26.6 (22.0-30.0) sec D-Dimer <0.17 (<0.60) mg/L FEU Sodium 138 (137-145) mmol/L Potassium 3.8 (3.5-5.1) mmol/L Chloride 104 (98-107) mmol/L Carbon Dioxide 30 (22-30) mmol/L Anion Gap 4 mmol/L BUN 6 L (7-17) mg/dL Creatinine 0.59 (0.52-1.04) mg/dL Est GFR (CKD-EPI)AfAm >90 (>60 ml/min/1.73 sqM) Est GFR (CKD-EPI)NonAf >90 (>60 ml/min/1.73 sqM) Glucose 98 (74-99) mg/dL Calcium 8.9 (8.4-10.2) mg/dL Magnesium 1.8 (1.6-2.3) mg/dL Total Bilirubin 0.4 (0.2-1.3) mg/dL AST 41 H (14-36) U/L ALT 18 (4-34) U/L Alkaline Phosphatase 101 (38-126) U/L Troponin I (0.000-0.034) ng/mL NT-Pro-B Natriuret Pep pg/mL Total Protein 6.7 (6.3-8.2) g/dL Albumin 3.8 (3.5-5.0) g/dL Lipase 45 (23-300) U/L Urine Color Urine Appearance (Clear) Urine pH (5.0-8.0) Ur Specific [place] (1.001-1.035) Urine Protein (Negative) Urine Glucose (UA) (Negative) Urine Ketones (Negative) Urine Blood (Negative) Urine Nitrite (Negative) Urine Bilirubin (Negative) Urine Urobilinogen (<2.0) mg/dL Ur Leukocyte Esterase (Negative) Urine RBC (0-5) /hpf Urine WBC (0-5) /hpf Ur Squamous Epith Cells (0-4) /hpf Amorphous Sediment (None) /hpf Hyaline Casts (0-2) /lpf Urine Mucus (None) /hpf Urine HCG, Qual (Not Detectd) 02/16/20 02/16/20 02/16/20 Range/Units 19:42 19:42 19:42 WBC (3.8-10.6) k/uL RBC (3.80-5.40) m/uL Hgb (11.4-16.0) gm/dL Hct (34.0-46.0) % MCV (80.0-100.0) fL MCH (25.0-35.0) pg MCHC (31.0-37.0) g/dL RDW (11.5-15.5) % Plt Count (150-450) k/uL Neutrophils % % Lymphocytes % % Monocytes % % Eosinophils % % Basophils % % Neutrophils # (1.3-7.7) k/uL Lymphocytes # (1.0-4.8) k/uL Monocytes # (0-1.0) k/uL Eosinophils # (0-0.7) k/uL Basophils # (0-0.2) k/uL PT (9.0-12.0) sec INR (<1.2) APTT (22.0-30.0) sec D-Dimer (<0.60) mg/L FEU Sodium (137-145) mmol/L Potassium (3.5-5.1) mmol/L Chloride (98-107) mmol/L Carbon Dioxide (22-30) mmol/L Anion Gap mmol/L BUN (7-17) mg/dL Creatinine (0.52-1.04) mg/dL Est GFR (CKD-EPI)AfAm (>60 ml/min/1.73 sqM) Est GFR (CKD-EPI)NonAf (>60 ml/min/1.73 sqM) Glucose (74-99) mg/dL Calcium (8.4-10.2) mg/dL Magnesium (1.6-2.3) mg/dL Total Bilirubin (0.2-1.3) mg/dL AST (14-36) U/L ALT (4-34) U/L Alkaline Phosphatase (38-126) U/L Troponin I <0.012 (0.000-0.034) ng/mL NT-Pro-B Natriuret Pep 140 pg/mL Total Protein (6.3-8.2) g/dL Albumin (3.5-5.0) g/dL Lipase (23-300) U/L Urine Color Urine Appearance (Clear) Urine pH (5.0-8.0) Ur Specific [place] (1.001-1.035) Urine Protein (Negative) Urine Glucose (UA) (Negative) Urine Ketones (Negative) Urine Blood (Negative) Urine Nitrite (Negative) Urine Bilirubin (Negative) Urine Urobilinogen (<2.0) mg/dL Ur Leukocyte Esterase (Negative) Urine RBC (0-5) /hpf Urine WBC (0-5) /hpf Ur Squamous Epith Cells (0-4) /hpf Amorphous Sediment (None) /hpf Hyaline Casts (0-2) /lpf Urine Mucus (None) /hpf Urine HCG, Qual Not Detected (Not Detectd) 02/16/20 Range/Units 19:42 WBC (3.8-10.6) k/uL RBC (3.80-5.40) m/uL Hgb (11.4-16.0) gm/dL Hct (34.0-46.0) % MCV (80.0-100.0) fL MCH (25.0-35.0) pg MCHC (31.0-37.0) g/dL RDW (11.5-15.5) % Plt Count (150-450) k/uL Neutrophils % % Lymphocytes % % Monocytes % % Eosinophils % % Basophils % % Neutrophils # (1.3-7.7) k/uL Lymphocytes # (1.0-4.8) k/uL Monocytes # (0-1.0) k/uL Eosinophils # (0-0.7) k/uL Basophils # (0-0.2) k/uL PT (9.0-12.0) sec INR (<1.2) APTT (22.0-30.0) sec D-Dimer (<0.60) mg/L FEU Sodium (137-145) mmol/L Potassium (3.5-5.1) mmol/L Chloride (98-107) mmol/L Carbon Dioxide (22-30) mmol/L Anion Gap mmol/L BUN (7-17) mg/dL Creatinine (0.52-1.04) mg/dL Est GFR (CKD-EPI)AfAm (>60 ml/min/1.73 sqM) Est GFR (CKD-EPI)NonAf (>60 ml/min/1.73 sqM) Glucose (74-99) mg/dL Calcium (8.4-10.2) mg/dL Magnesium (1.6-2.3) mg/dL Total Bilirubin (0.2-1.3) mg/dL AST (14-36) U/L ALT (4-34) U/L Alkaline Phosphatase (38-126) U/L Troponin I (0.000-0.034) ng/mL NT-Pro-B Natriuret Pep pg/mL Total Protein (6.3-8.2) g/dL Albumin (3.5-5.0) g/dL Lipase (23-300) U/L Urine Color Yellow Urine Appearance Cloudy H (Clear) Urine pH 7.5 (5.0-8.0) Ur Specific [place] 1.013 (1.001-1.035) Urine Protein Negative (Negative) Urine Glucose (UA) Negative (Negative) Urine Ketones Negative (Negative) Urine Blood Negative (Negative) Urine Nitrite Negative (Negative) Urine Bilirubin Negative (Negative) Urine Urobilinogen <2.0 (<2.0) mg/dL Ur Leukocyte Esterase Negative (Negative) Urine RBC 1 (0-5) /hpf Urine WBC 2 (0-5) /hpf Ur Squamous Epith Cells 7 H (0-4) /hpf Amorphous Sediment Occasional H (None) /hpf Hyaline Casts 4 H (0-2) /lpf Urine Mucus Few H (None) /hpf Urine HCG, Qual (Not Detectd) 02/16/20 19:33 EKG shows normal sinus rhythm normal EKG. Ventricular rate is 61 bpm. [place] inter hoang is 1:30 milliseconds. Chemistry shows 96 ms. QT QTc is 412/414 ms. - Radiology Data Radiology results: report reviewed Normal Chest x-ray. No changes. Disposition Clinical Impression: Atypical chest pain, GERD (gastroesophageal reflux disease) Disposition: HOME SELF-CARE Condition: Good Instructions (If sedation given, give patient instructions): Diet for Stomach Ulcers and Gastritis (ED) Additional Instructions: Please use medication as discussed. Please follow up with family doctor if symptoms have not improved over the next two days. Please return to the emergency room if your symptoms increase or worsen or for any other concerns. Prescriptions: Famotidine [Pepcid] 20 mg PO BID #20 tablet Ondansetron Odt [Zofran Odt] 4 mg PO Q8HR PRN #12 tab PRN Reason: Nausea Is patient prescribed a controlled substance at d/c from ED?: No Referrals: Tameka Washburn MD [Primary Care Provider] - 1-2 days Time of Disposition: 21:32
[2020-02-16 19:54] LABS: Basophils # (A) 0.1 k/uL (0-0.2); Basophils % (A) 1 %; Eosinophils # (A) 0.1 k/uL (0-0.7); Eosinophils % (A) 1 %; HCT 41.7 % (34.0-46.0); HGB 13.7 gm/dL (11.4-16.0); Lymphocytes % (A) 21 %; MCH 29.4 pg (25.0-35.0); MCHC 32.8 g/dL (31.0-37.0); MCV 89.6 fL (80.0-100.0); Mean Platelet Volume 6.7; Monocytes # (A) 0.4 k/uL (0-1.0); Monocytes % (A) 4 %; Neutrophils # (A) 6.7 k/uL (1.3-7.7); Neutrophils % (A) 71 %; Platelet Count 334 k/uL (150-450); RBC 4.65 m/uL (3.80-5.40); RDW 12.8 % (11.5-15.5); WBC 9.3 k/uL (3.8-10.6)
--- NOTE | 2020-02-16 19:59 | XR ---
EXAMINATION TYPE: XR chest 2V DATE OF EXAM: 02/16/2020 COMPARISON: 09/20/2017 HISTORY: Cough Heart and mediastinum are normal. Lungs are clear. Diaphragm is normal. Bony thorax appears normal. IMPRESSION: Normal chest. No change.
[2020-02-16 20:16] LABS: ALT 18 U/L (4-34); AST 41 U/L (14-36); African American GFR (CKD) >90 (>60 ml/min/1.73 sqM); Albumin 3.8 g/dL (3.5-5.0); Alkaline Phosphatase 101 U/L (38-126); Anion Gap 4 mmol/L; Blood Urea Nitrogen 6 mg/dL (7-17); Calcium 8.9 mg/dL (8.4-10.2); Carbon Dioxide 30 mmol/L (22-30); Chloride 104 mmol/L (98-107); Glucose 98 mg/dL (74-99); Magnesium 1.8 mg/dL (1.6-2.3); Non-African American GFR(CKD) >90 (>60 ml/min/1.73 sqM); Potassium 3.8 mmol/L (3.5-5.1); Sodium 138 mmol/L (137-145); Total Bilirubin 0.4 mg/dL (0.2-1.3); Total Protein 6.7 g/dL (6.3-8.2)
[2020-02-16 20:25] LABS: D-Dimer <0.17 mg/L FEU (<0.60); Partial Thromboplastin Time 26.6 sec (22.0-30.0); Prothrombin Time 10.3 sec (9.0-12.0)
[2020-02-16 21:27] LABS: Amorphous Sediment,Urine Occasional /hpf; Appearance,Urine Cloudy (Clear); Bilirubin,Urine Negative (Negative); Blood,Urine Negative (Negative); Color,Urine Yellow; Glucose,Urine (UA) Negative (Negative); Hyaline Casts,Urine 4 /lpf (0-2); Ketones,Urine Negative (Negative); Leukocyte Esterase,Urine Negative (Negative); Mucus,Urine Few /hpf; Nitrite,Urine Negative (Negative); PH, Urine 7.5 (5.0-8.0); Protein,Urine Negative (Negative); RBC,Urine 1 /hpf (0-5); Specific Gravity,Urine 1.013 (1.001-1.035); Squamous Epithelial Cell,Urine 7 /hpf (0-4); Urobilinogen,Urine <2.0 mg/dL (<2.0); WBC,Urine 2 /hpf (0-5)
[2020-02-16 21:49] VITALS: BP 142/96; PULSE 65; RESP 16; TEMP 97.9
== END 2020-02-16 21:45 | disposition home or self-care (01) ==
LOC: EC 18:55
DX: K21.9 Gastro-esophageal reflux disease without esophagitis (principal); R07.89 Other chest pain; Z88.0 Allergy status to penicillin; Z88.2 Allergy status to sulfonamides
CPT/HCPCS: 36415; 93005; 85379; 83880; 80053; 83690; 83735; 84484; 85025; 85610; 85730; 81001; 81025; 71046; 99285; 96374; 96361; C9113

== ENCOUNTER 2020-03-05 14:42 | Emergency (ER) | payer OTHER ==
[2020-03-05 14:52] VITALS: BP 120/82; PULSE 108; RESP 18; TEMP 98.5
[2020-03-05] MEDS ORDERED: ONDANSETRON ODT 4 MG TAB PO STA (15:24)
[2020-03-05] MEDS ORDERED: diphenhydrAMINE 50 MG CAP PO STA (15:24)
[2020-03-05] MEDS ORDERED: HYDROmorphone 1 MG/ML 1 ML SYRINGE IM STA (15:24)
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
== END 2020-03-05 15:45 | disposition home or self-care (01) ==
LOC: EC 14:42
DX: G43.909 Migraine, unspecified, not intractable, without status migrainosus (principal); Z88.0 Allergy status to penicillin; Z88.2 Allergy status to sulfonamides
CPT/HCPCS: 99283; 96372; J1170

== ENCOUNTER 2020-03-09 02:49 | Emergency (ER) | payer OTHER ==
[2020-03-09 03:02] VITALS: PULSE 60; RESP 21
[2020-03-09] MEDS ORDERED: MAG HYDROX/AL HYDROX/SIMETH 30 ML, HYOSCYAMINE ELIXIR 10 ML, LIDOCAINE VISCOUS 2% 10 ML PO STA ×3 (03:17)
[2020-03-09] MEDS ORDERED: SODIUM CHLORIDE 0.9% 1,000 ML IV ONE (03:17)
--- NOTE | 2020-03-09 03:27 | ED ---
General Adult HPI - General Chief complaint: Chest Pain Stated complaint: Chest Discomfort Time Seen by Provider: 03/09/20 03:04 Source: patient Mode of arrival: wheelchair Limitations: no limitations - History of Present Illness Initial comments: Twila A 29-year-old female resents ER today for evaluation of burning epigastric abdominal pain. Patient states she had similar pain 2 weeks ago and was diagnosed with GERD. She was prescribed medications but stopped taking them. She states that she started have a little bit of discomfort yesterday evening and took her medication, famotidine. She then woke from sleep approximately 20 minutes prior to arrival with worsening burning epigastric pain, took a second famotidine and came to the ER for evaluation. She reports feeling nauseated but denies vomiting. She describes the pain as a burning that radiates from her stomach to her back and up into her chest. Has no history of pancreatitis. - Related Data Home Medications Medication Instructions Recorded Confirmed Methocarbamol [Robaxin-750] 750 mg PO TID PRN 11/07/19 02/16/20 Hydrocodone/Acetaminophen [[place] 1 tab PO QID PRN 02/16/20 02/16/20 10-325] Ondansetron HCl [Zofran] 8 mg PO Q8H PRN 02/16/20 02/16/20 SUMAtriptan succinate [Imitrex] 25 mg PO BID PRN 02/16/20 02/16/20 Previous Rx's Medication Instructions Recorded Famotidine [Pepcid] 20 mg PO BID #20 tablet 02/16/20 Ondansetron Odt [Zofran Odt] 4 mg PO Q8HR PRN #12 tab 02/16/20 Sucralfate [Carafate] 1 gm PO ACHS #1 bottle 03/09/20 Allergies Allergy/AdvReac Type Severity Reaction Status Date / Time amoxicillin [From Amoxil] Allergy Rash/Hives Verified 03/09/20 03:02 Penicillins Allergy Rash/Hives Verified 03/09/20 03:02 Sulfa (Sulfonamide Allergy Unknown Verified 03/09/20 03:02 Antibiotics) Childhood Review of Systems ROS Statement: Those systems with pertinent positive or pertinent negative responses have been documented in the HPI. ROS Other: All systems not noted in ROS Statement are negative. Past Medical History Past Medical History: Fibromyalgia Additional Past Medical History / Comment(s): fibromyalgia, migraines History of Any Multi-Drug Resistant Organisms: None Reported Past Surgical History: No Surgical Hx Reported Additional Past Surgical History / Comment(s): crainiotomy, top vertabrea removed Past Psychological History: No Psychological Hx Reported Smoking Status: Never smoker Past Alcohol Use History: None Reported Past Drug Use History: None Reported General Exam - General Exam Comments Initial Comments: Physical Exam GENERAL: Morbidly obese female, appears uncomfortable HENT: Normocephalic, Atraumatic. EYES: PERRL, EOMI PULMONARY: Unlabored respirations. No audible rales rhonchi or wheezing was noted. CARDIOVASCULAR: There is a regular rate and rhythm without any murmurs gallops or rubs. ABDOMEN: Soft Tenderness to palpation in epigastrum SKIN: Skin is clear with no lesions or rashes and otherwise unremarkable. : Deferred NEUROLOGIC: Patient is alert and oriented x3. Moving all extremities spontaneously MUSCULOSKELETAL: Normal extremities with adequate strength and full range of motion. No lower extremity swelling or edema. No calf tenderness. PSYCHIATRIC: Normal psychiatric evaluation. Limitations: no limitations Course Vital Signs 03/09/20 03/09/20 02:58 05:30 Temperature 98.7 F 98.0 F Pulse Rate 60 60 Respiratory 21 21 Rate Blood Pressure 139/84 143/89 O2 Sat by Pulse 100 100 Oximetry EKG Findings - EKG Comments: EKG Findings:: EKG was obtained due to complaint of chest pain, EKG was obtained at 13 a.m., rate is 66 rhythm is sinus there is a normal axis, normal intervals, CO 138 QRS 94 QTC 440 elevations or depressions no evidence of acute ischemia or infarction or arrhythmia. Medical Decision Making - [facility] history was obtained from patient and review of medical record Morbidly obese 29-year-old female with history of GERD presenting with burning epigastric abdominal pain concerning for GERD versus pancreatitis EKG is nonischemic Labs were unremarkable patient received GI cocktail with minimal improvement Patient then complaining that she is developing migraine, was given her normal dose of Imitrex Patient received Morpine and pepcid with minimal improvement, reports morphine worsened her headache Patient comfortable with plan for discharge home, supportive care, follow up with GI - Lab Data Result diagrams: 03/09/20 03:26 03/09/20 03:26 Lab Results 03/09/20 03/09/20 Range/Units 03:26 03:26 WBC 9.7 (3.8-10.6) k/uL RBC 4.88 (3.80-5.40) m/uL Hgb 14.4 (11.4-16.0) gm/dL Hct 43.1 (34.0-46.0) % MCV 88.4 (80.0-100.0) fL MCH 29.6 (25.0-35.0) pg MCHC 33.5 (31.0-37.0) g/dL RDW 12.5 (11.5-15.5) % Plt Count 374 (150-450) k/uL MPV 6.8 Neutrophils % 63 % Lymphocytes % 29 % Monocytes % 4 % Eosinophils % 2 % Basophils % 1 % Neutrophils # 6.1 (1.3-7.7) k/uL Lymphocytes # 2.8 (1.0-4.8) k/uL Monocytes # 0.4 (0-1.0) k/uL Eosinophils # 0.2 (0-0.7) k/uL Basophils # 0.1 (0-0.2) k/uL Sodium 140 (137-145) mmol/L Potassium 3.5 (3.5-5.1) mmol/L Chloride 105 (98-107) mmol/L Carbon Dioxide 30 (22-30) mmol/L Anion Gap 5 mmol/L BUN 9 (7-17) mg/dL Creatinine 0.69 (0.52-1.04) mg/dL Est GFR (CKD-EPI)AfAm >90 (>60 ml/min/1.73 sqM) Est GFR (CKD-EPI)NonAf >90 (>60 ml/min/1.73 sqM) Glucose 112 H (74-99) mg/dL Calcium 9.0 (8.4-10.2) mg/dL Total Bilirubin 0.5 (0.2-1.3) mg/dL AST 49 H (14-36) U/L ALT 15 (4-34) U/L Alkaline Phosphatase 110 (38-126) U/L Total Protein 6.7 (6.3-8.2) g/dL Albumin 3.8 (3.5-5.0) g/dL Lipase 70 (23-300) U/L Disposition Clinical Impression: Gastritis Disposition: HOME SELF-CARE Condition: Stable Instructions (If sedation given, give patient instructions): Gastritis (DC) Prescriptions: Sucralfate [Carafate] 1 gm PO ACHS #1 bottle Is patient prescribed a controlled substance at d/c from ED?: No Referrals: Tameka Washburn MD [Primary Care Provider] - 1-2 days Wendy Humphreys MD [STAFF PHYSICIAN] - 1-2 days
[2020-03-09] MEDS ORDERED: SUMAtriptan succinate 25 MG TAB PO STA (03:38)
[2020-03-09 03:45] LABS: Basophils # (A) 0.1 k/uL (0-0.2); Basophils % (A) 1 %; Eosinophils # (A) 0.2 k/uL (0-0.7); Eosinophils % (A) 2 %; HCT 43.1 % (34.0-46.0); HGB 14.4 gm/dL (11.4-16.0); Lymphocytes # (A) 2.8 k/uL (1.0-4.8); Lymphocytes % (A) 29 %; MCH 29.6 pg (25.0-35.0); MCHC 33.5 g/dL (31.0-37.0); MCV 88.4 fL (80.0-100.0); Mean Platelet Volume 6.8; Monocytes # (A) 0.4 k/uL (0-1.0); Monocytes % (A) 4 %; Neutrophils # (A) 6.1 k/uL (1.3-7.7); Neutrophils % (A) 63 %; Platelet Count 374 k/uL (150-450); RBC 4.88 m/uL (3.80-5.40); RDW 12.5 % (11.5-15.5); WBC 9.7 k/uL (3.8-10.6)
[2020-03-09 03:58] LABS: ALT 15 U/L (4-34); AST 49 U/L (14-36); African American GFR (CKD) >90 (>60 ml/min/1.73 sqM); Albumin 3.8 g/dL (3.5-5.0); Alkaline Phosphatase 110 U/L (38-126); Anion Gap 5 mmol/L; Blood Urea Nitrogen 9 mg/dL (7-17); Carbon Dioxide 30 mmol/L (22-30); Chloride 105 mmol/L (98-107); Glucose 112 mg/dL (74-99); Lipase 70 U/L (23-300); Non-African American GFR(CKD) >90 (>60 ml/min/1.73 sqM); Potassium 3.5 mmol/L (3.5-5.1); Sodium 140 mmol/L (137-145); Total Bilirubin 0.5 mg/dL (0.2-1.3); Total Protein 6.7 g/dL (6.3-8.2)
--- NOTE | 2020-03-09 04:09 | XR ---
EXAM: XR Chest, 2 Views CLINICAL HISTORY: ITS.REASON XR Reason: chest pain TECHNIQUE: Frontal and lateral views of the chest. COMPARISON: 02/16/2020 FINDINGS: Lungs: No focal consolidation. The pulmonary vasculature demonstrates no significant radiographic abnormality. Pleural space: Unremarkable. No pneumothorax. No large pleural effusion. Heart: Unremarkable. No cardiomegaly. Mediastinum: Unremarkable. No significant abnormality identified. The trachea is midline. Bones/joints: Unremarkable. IMPRESSION: No focal consolidation or acute cardiopulmonary process identified.
[2020-03-09] MEDS ORDERED: FAMOTIDINE 20 MG/2 ML VIAL IV STA (04:23)
[2020-03-09] MEDS ORDERED: MORPHINE SULFATE 4 MG/ML SYRINGE IVP STA (04:23)
[2020-03-09 05:32] VITALS: BP 143/89; TEMP 98
== END 2020-03-09 05:32 | disposition home or self-care (01) ==
LOC: EC 02:49
DX: K29.70 Gastritis, unspecified, without bleeding (principal); E66.01 Morbid (severe) obesity due to excess calories; G43.909 Migraine, unspecified, not intractable, without status migrainosus; Z88.0 Allergy status to penicillin; Z88.2 Allergy status to sulfonamides
CPT/HCPCS: 36415; 93005; 80053; 83690; 85025; 71046; 99285; 96374; 96375; 96361; J2270

== ENCOUNTER 2020-04-29 18:06 | Emergency (ER) | payer OTHER ==
[2020-04-29 18:11] VITALS: PULSE 82; RESP 18
[2020-04-29] MEDS ORDERED: HYDROmorphone 1 MG/ML 1 ML SYRINGE IM STA (18:19)
--- NOTE | 2020-04-29 18:22 | ED ---
General Adult HPI - General Chief complaint: Fall Stated complaint: Fall back injury Time Seen by Provider: 04/29/20 18:15 Source: patient, RN notes reviewed Mode of arrival: ambulatory Limitations: no limitations - History of Present Illness Initial comments: Patient is a pleasant 29-year-old female presenting to the emergency Department with complaints of thoracic back pain. Patient does have a history of some chronic back problems. Patient states this morning she was moving a bed and fell backwards. Patient landed on her mid and upper back. Patient is having discomfort since that time. Patient states she has not urinated in the past few hours however that is not abnormal for her. No head injury or loss of conscious. No weakness or incontinence. - Related Data Home Medications Medication Instructions Recorded Confirmed Hydrocodone/Acetaminophen [[place] 1 tab PO QID PRN 02/16/20 04/29/20 10-325] SUMAtriptan succinate [Imitrex] 25 mg PO BID PRN 02/16/20 04/29/20 ondansetron HCL [Zofran] 8 mg PO Q8H PRN 02/16/20 04/29/20 Cyclobenzaprine [Flexeril] 5 mg PO Q8H PRN 04/29/20 04/29/20 Pantoprazole [Protonix] 40 mg PO BID 04/29/20 04/29/20 Allergies Allergy/AdvReac Type Severity Reaction Status Date / Time amoxicillin [From Amoxil] Allergy Rash/Hives Verified 04/29/20 18:33 Penicillins Allergy Rash/Hives Verified 04/29/20 18:33 Sulfa (Sulfonamide Allergy Unknown Verified 04/29/20 18:33 Antibiotics) Childhood Review of Systems ROS Statement: Those systems with pertinent positive or pertinent negative responses have been documented in the HPI. ROS Other: All systems not noted in ROS Statement are negative. Constitutional: Denies: fever Eyes: Denies: eye pain ENT: Denies: ear pain Respiratory: Denies: cough Cardiovascular: Denies: chest pain Endocrine: Denies: fatigue Gastrointestinal: Denies: abdominal pain Genitourinary: Denies: dysuria Musculoskeletal: Reports: as per HPI, back pain Skin: Denies: rash Neurological: Denies: weakness Past Medical History Past Medical History: Fibromyalgia Additional Past Medical History / Comment(s): fibromyalgia, migraines History of Any Multi-Drug Resistant Organisms: None Reported Past Surgical History: No Surgical Hx Reported Additional Past Surgical History / Comment(s): crainiotomy, top vertabrea removed Past Psychological History: No Psychological Hx Reported Smoking Status: Never smoker Past Alcohol Use History: None Reported Past Drug Use History: None Reported General Exam Limitations: no limitations General appearance: alert, in no apparent distress Head exam: Present: atraumatic Eye exam: Present: normal appearance Neck exam: Present: normal inspection Respiratory exam: Present: normal lung sounds bilaterally. Absent: chest wall tenderness Cardiovascular Exam: Present: regular rate, normal rhythm GI/Abdominal exam: Present: soft. Absent: tenderness Extremities exam: Present: normal inspection Back exam: Present: vertebral tenderness (T3 through T8) Neurological exam: Present: alert. Absent: motor sensory deficit Expanded Sensory exam: Lower Extremity Light Touch: Normal Motor strength exam: RLE: 5, LLE: 5 Psychiatric exam: Present: normal affect, normal mood Skin exam: Present: normal color Course Vital Signs 04/29/20 18:09 Temperature 98.0 F Pulse Rate 82 Respiratory 18 Rate Blood Pressure 133/87 O2 Sat by Pulse 100 Oximetry Medical Decision Making - Medical Decision Making Patient reevaluated and updated. Post void bladder scan 73 mL. Patient states she does have a pain doctor and back doctor and agrees to follow-up. Patient has pain medicine and muscle relaxers at home. - Radiology Data Radiology results: image reviewed (X-ray reveals no acute process) Disposition Clinical Impression: Fall, Back pain, thoracic Disposition: HOME SELF-CARE Condition: Stable Instructions (If sedation given, give patient instructions): Back Pain (ED) Additional Instructions: Please follow-up with your primary care physician, back doctor, including specialist in the next couple days for recheck. Return for loss of control of bowel or bladder function, weakness, loss of sensation, worsening symptoms or other concerns. Is patient prescribed a controlled substance at d/c from ED?: No Referrals: Tameka Washburn MD [Primary Care Provider] - 1-2 days Time of Disposition: 19:43
--- NOTE | 2020-04-29 19:27 | XR ---
EXAMINATION TYPE: XR thoracic spine complete DATE OF EXAM: 04/29/2020 COMPARISON: NONE HISTORY: Back pain TECHNIQUE: 3 views FINDINGS: Thoracic vertebra have normal alignment. Posterior elements are intact. There is no sign of thoracic paraspinal mass. There is no evidence of compression fracture. IMPRESSION: Negative thoracic spine exam.
[2020-04-29] MEDS ORDERED: KETOROLAC 15 MG/ML 1 ML VIAL IM STA (19:41)
[2020-04-29] MEDS ORDERED: ORPHENADRINE 30 MG/ML 2 ML VIAL IM STA (19:41)
[2020-04-29 20:16] VITALS: BP 137/92; TEMP 99
== END 2020-04-29 20:16 | disposition home or self-care (01) ==
LOC: EC 18:06
DX: M54.6 Pain in thoracic spine (principal); M79.7 Fibromyalgia; G43.909 Migraine, unspecified, not intractable, without status migrainosus; Z79.899 Other long term (current) drug therapy; Z88.0 Allergy status to penicillin; Z88.2 Allergy status to sulfonamides
CPT/HCPCS: 51798; 72072; 99284; 96372 ×3; J2360; J1170; J1885

== ENCOUNTER 2020-06-17 19:52 | Emergency (ER) | payer OTHER ==
[2020-06-17 19:58] VITALS: BP 121/82; PULSE 87; RESP 18; TEMP 98.5
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
== END 2020-06-17 20:45 | disposition home or self-care (01) ==
LOC: EC 19:52
DX: R42 Dizziness and giddiness (principal); Z79.899 Other long term (current) drug therapy; Z88.0 Allergy status to penicillin; Z88.2 Allergy status to sulfonamides
CPT/HCPCS: 99283

== ENCOUNTER → 2020-10-22 | Outpatient (CLI) | payer OTHER ==
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
== END | disposition home or self-care (01) ==
LOC: RADXRMAIN 15:27
PROVIDERS: ATTEND Family Medicine
DX: T74.11XA Adult physical abuse, confirmed, initial encounter (principal)
CPT/HCPCS: 72220

== ENCOUNTER → 2021-03-20 | Outpatient (CLI) | payer OTHER ==
--- NOTE | 2021-03-21 03:57 | MR ---
EXAMINATION TYPE: MR brain wo/w con DATE OF EXAM: 03/20/2021 COMPARISON: None HISTORY: Migraines, dizziness, eye pressure, hx chiari decompression surgery. CONTRAST: Standard multiplanar, multisequence MRI departmental protocol images were obtained without contrast a nd with 10 mL intravenous Gadavist gadolinium contrast. Multiplanar multiecho imaging of the brain. Ventricles and sulci appear normal. There is no mass effect nor midline shift. There is no evidence o f intracranial hemorrhage. Diffusion images show no evidence of an infarct. The [place] and white matter structures have fairly normal signal pattern. There is no evidence of cerebral edema. Brainstem is i ntact. Sella turcica appears normal. There is 1.8 cm mucous retention cyst right maxillary sinus. Cor pus callosum appears normal. There is no evidence of orbital mass. The contrast images show no pathologic enhancement. There is normal enhancement of the venous sinuses . IMPRESSION: Negative MR scan of the brain.
== END ==
LOC: RADMRIMAIN 14:09
PROVIDERS: ATTEND Psychiatry & Neurology Neurology
DX: D49.6 Neoplasm of unspecified behavior of brain (principal)
CPT/HCPCS: 70553; A9585

== ENCOUNTER → 2021-06-18 | Outpatient (CLI) | payer OTHER ==
--- NOTE | 2021-06-19 08:11 | CT ---
EXAMINATION TYPE: CT chest w con DATE OF EXAM: 06/18/2021 COMPARISON: Chest x-ray 05/27/2021 HISTORY: Persistent cough, asthma CT DLP: 748.9 mGycm Automated exposure control for dose reduction was used. CONTRAST: CT scan of the chest is performed with IV Contrast, patient injected with 100 mL of Isovue 300. FINDINGS: LUNGS: The lungs are grossly clear, there is no concerning parenchymal mass or nodule identified. T here is no pleural effusion or pneumothorax seen. The tracheobronchial tree is patent. MEDIASTINUM: There are no greater than 1 cm hilar or mediastinal lymph nodes. No pericardial effusi on is seen. AORTA: No additional significant abnormality is seen. OTHER: No additional significant abnormality is seen. IMPRESSION: Normal chest CT
== END | disposition home or self-care (01) ==
LOC: RADCTMAIN 17:50
PROVIDERS: ATTEND Internal Medicine
DX: J45.20 Mild intermittent asthma, uncomplicated (principal)
CPT/HCPCS: 71260; Q9967

== ENCOUNTER → 2022-01-04 | Outpatient (CLI) | payer OTHER | END | disposition home or self-care (01) | LOC: LABWHC1 12:07 | PROVIDERS: ATTEND Dermatology | DX: L73.2 Hidradenitis suppurativa (principal) | CPT/HCPCS: 36415; 84132 ==

== ENCOUNTER → 2022-01-10 | Outpatient (CLI) | payer OTHER ==
[2022-01-11 01:05] LABS: Hepatitis B Surface Antigen Nonreactive (Nonreactive)
[2022-01-11 01:07] LABS: Basophils # (A) 0.03 X 10*3/uL (0.00-0.10); Basophils % (A) 0.4 %; Eosinophils # (A) 0.13 X 10*3/uL (0.04-0.35); Eosinophils % (A) 1.9 %; HCT 42.8 % (37.2-46.3); Immature Grans, Automated 0.1 %; Lymphocytes # (A) 2.41 X 10*3/uL (0.90-5.00); Lymphocytes % (A) 35.5 %; MCH 29.9 pg (27.0-32.0); MCHC 32.7 g/dL (32.0-37.0); MCV 91.3 fL (80.0-97.0); Mean Platelet Volume 9.9 fL (9.5-12.2); Monocytes % (A) 5.9 %; NRBC Per 100 WBC 0 /100 WBCS (0.0-0.0); Neutrophils # (A) 3.81 X 10*3/uL (1.80-7.70); Neutrophils % (A) 56.2 %; Platelet Count 413 X 10*3/uL (140-440); RBC 4.69 X 10*6/uL (4.10-5.20); RDW 12.9 % (11.5-14.5); WBC 6.79 X 10*3/uL (4.50-10.00)
[2022-01-11 01:31] LABS: African American GFR (CKD) 135.1 (60.0-200.0); Non-African American GFR(CKD) 116.6 (60.0-200.0)
[2022-01-11 02:42] LABS: Hepatitis B Surface AB- Quant 26.9 mIU/mL; Hepatitis B Surface Antibody Reactive (Nonreactive)
== END | disposition home or self-care (01) ==
LOC: LABWHC1 14:28
PROVIDERS: ATTEND Dermatology Procedural Dermatology
DX: L73.2 Hidradenitis suppurativa (principal)
CPT/HCPCS: 36415; 82565; 84450; 84460; 85025; 86480; 86706; 87340

== ENCOUNTER → 2022-01-19 | Outpatient (CLI) | payer OTHER ==
--- NOTE | 2022-01-19 19:07 | US ---
EXAMINATION TYPE: US transvaginal DATE OF EXAM: 01/19/2022 COMPARISON: US 2017 CLINICAL HISTORY: R10.2 PELVIC AND PERINEAL PAIN. Pelvic pain, 0, history of PCOS, abnormal c ycles TECHNIQUE: Transvaginal exam only per ordering physician Date of LMP: 1 week ago EXAM MEASUREMENTS: Uterus: 7.3 x 3.5 x 4.8 cm Endometrial Stripe: 0.9 cm Right Ovary: 2.9 x 1.4 x 2.8 cm Left Ovary: 2.2 x 2.3 x 1.5 cm 1. Uterus: anteverted 2. Endometrium: appears thickened for patient's LMP 3. Right Ovary: wnl 4. Left Ovary: wnl. A few peripheral follicles are present. 5. Bilateral Adnexa: wnl 6. Posterior cul-de-sac: free fluid IMPRESSION: 1. Endometrial thickness of 0.9 cm, correlate with the menstrual cycle stage. This is somewhat thick for the early proliferative phase
== END | disposition home or self-care (01) ==
LOC: RADUSWWP 15:45
PROVIDERS: ATTEND Obstetrics & Gynecology
DX: R10.2 Pelvic and perineal pain (principal)
CPT/HCPCS: 76830

== ENCOUNTER 2022-04-24 12:27 | Emergency (ER) | payer OTHER ==
[2022-04-24 12:33] VITALS: RESP 18; TEMP 96.9
[2022-04-24] MEDS ORDERED: KETOROLAC 15 MG/ML 1 ML VIAL IVP STA (13:01)
[2022-04-24] MEDS ORDERED: diphenhydrAMINE 50 MG/ML 1 ML VIAL IVP STA (13:01)
[2022-04-24] MEDS ORDERED: PROCHLORPERAZINE INJ 10 MG/2 ML VIAL IVP STA (13:01)
[2022-04-24] MEDS ORDERED: SODIUM CHLORIDE 0.9% 1,000 ML IV STA (13:01)
--- NOTE | 2022-04-24 13:37 | ED ---
General Adult HPI - General Chief complaint: Headache Stated complaint: headache Time Seen by Provider: 04/24/22 12:40 Source: patient, RN notes reviewed, old records reviewed Mode of arrival: ambulatory Limitations: no limitations - History of Present Illness Initial comments: She is a 31-year-old female who presents to Department complaining of a migraine versus cluster headache. She has a history of these. States it is left-sided today. Began yesterday. Is on triptan at home but already used them for the month. She states this is a typical migraine or cluster headache for her. Involves sensitivity to light and sound. Endorses some mild nausea. Denies diarrhea, fevers, chills, cough, chest pain, abdominal pain. No blurry vision. No weakness or numbness. Atypical signs and symptoms from her migraine headaches and cluster headaches. Presents for further evaluation at this time. States migraine cocktail to help with the pain. - Related Data Home Medications Medication Instructions Recorded Confirmed Hydrocodone/Acetaminophen [[place] 1 tab PO QID PRN 02/16/20 04/29/20 10-325] SUMAtriptan succinate [Imitrex] 25 mg PO BID PRN 02/16/20 04/29/20 ondansetron HCL [Zofran] 8 mg PO Q8H PRN 02/16/20 04/29/20 Cyclobenzaprine [Flexeril] 5 mg PO Q8H PRN 04/29/20 04/29/20 Pantoprazole [Protonix] 40 mg PO BID 04/29/20 04/29/20 Previous Rx's Medication Instructions Recorded Meclizine [Antivert] 25 mg PO TID PRN #15 tab 06/17/20 Allergies Allergy/AdvReac Type Severity Reaction Status Date / Time amoxicillin [From Amoxil] Allergy Rash/Hives Verified 04/24/22 12:33 Penicillins Allergy Rash/Hives Verified 04/24/22 12:33 Sulfa (Sulfonamide Allergy Unknown Verified 04/24/22 12:33 Antibiotics) Childhood Review of Systems ROS Statement: Those systems with pertinent positive or pertinent negative responses have been documented in the HPI. Review of Systems: CONST: Denies fever EYES: Denies blurry vision ENT: Denies nasal congestion C/V: Denies Chest pain RESP: Denies shortness of breath GI: Denies abdominal pain : Denies dysuria SKIN: Denies rash. MSK: Denies joint pain. NEURO: Endorses headache ROS Other: All systems not noted in ROS Statement are negative. Past Medical History Past Medical History: Fibromyalgia Additional Past Medical History / Comment(s): fibromyalgia, migraines History of Any Multi-Drug Resistant Organisms: None Reported Past Surgical History: No Surgical Hx Reported Additional Past Surgical History / Comment(s): crainiotomy, top vertabrea removed Past Psychological History: Anxiety Smoking Status: Never smoker Past Alcohol Use History: None Reported Past Drug Use History: None Reported General Exam - General Exam Comments Initial Comments: General: Appears in mild to moderate distress secondary to headache. HEAD: Normal with no signs of head trauma. EYES: PERRLA, EOMI, conjunctiva normal, no discharge. Pupils are 3 mm equal bilaterally. ENT: Hearing grossly intact, normal oropharynx. RESPIRATORY: Clear breath sounds bilaterally. No wheezes, rales, or rhonchi. C/V: Regular rate and rhythm. S1 and S2 auscultated, no edema, peripheral pulses 2+ and intact throughout ABD: Abd is soft, nontender, nondistended EXT: Normal range of motion, no obvious deformity SKIN: No rashes or lesions observed on exposed skin. NEURO: Alert and oriented x 4. Cranial nerves II-XII intact. No focal sensory or strength deficits. Limitations: no limitations Course Vital Signs 04/24/22 04/24/22 12:31 15:32 Temperature 96.9 F L Pulse Rate 111 H 86 Respiratory 18 18 Rate Blood Pressure 159/98 141/93 O2 Sat by Pulse 99 99 Oximetry Medical Decision Making - Medical Decision Making Was pt. sent in by a medical professional or institution? @ -No Did you speak to anyone other than the patient for history? @ -No Did you review nursing and triage notes? @ -Yes. Agreed. Were old charts reviewed? @ -Yes. Prior visits. Differential Diagnosis? @ -Differential Headache: Migraine, tension, cluster, temporal arteritis, acute closure glaucoma, intercranial hemorrhage, mastoiditis, sinusitis, head injury, this is not meant to be an all-inclusive list. EKG interpreted by me (3pts min.)? @ -none X-rays interpreted by me (1pt min.)? @ -none CT interpreted by me (1pt min.)? @ -none U/S interpreted by me (1pt. min.)? @ -none What testing was considered but not performed? (CT, X-rays, U/S, labs)? Why? @None What meds were considered but not given? Why? @ -none Did you discuss the management of the patient with other professionals? @ -No Did you reconcile home meds? @ -No Was smoking cessation discussed for >3mins.? @ -none Was critical care preformed (if so, how long)? @ -none Were there social determinants of health that impacted care today? How? (Homelessness, low income, unemployed, alcoholism, drug addiction, transportation, low edu. Level, literacy, decrease access to med. care, alf, rehab)? @ -None Was there de-escalation of care discussed even if they declined? (Discuss DNR or withdrawal of care, Hospice)? @ -No What co-morbidities impacted this encounter? (DM, HTN, Smoking, COPD, CAD, Cancer, CVA, Hep., AIDS, mental health diagnosis, sleep apnea, morbid obesity)? @ -Chronic migraine headaches, cluster headaches. Was patient admitted / discharged? @ -Based on the patient's presentation and physical exam, she presents emergency Department complaining of her typical migraine, cluster headaches. She does experience these on a weekly basis. States this is pretty typical for her, having photophobia and phonophobia with a left-sided headache. It is not the worst headache of her life. Endorses some nausea. Had one or 2 episodes of nonbilious nonbloody emesis. Denies any chest pain, shortness breath, abdominal pain. Does endorse some sensitivity to light but no changes in vision. Is on triptans at home but she is out of her current medications. She is to follow-up with her PCP early this month. Presents over concern for her current migraine headache. States it feels acute typical one and is requesting an IV migraine cocktail. Vital signs within except for limits. I was in agreement this plan. I do not believe that imaging and laboratory studies are required at this time. Patient did receive IV fluids, Compazine, Benadryl, Toradol. She also required IV morphine as well as a dose of steroids. Following treatment, patient did feel improved. Vital signs are within except for limits. She like to go home at this time. I believe this is reasonable. Strict return precautions were discussed. I instructed the patient to follow up with their PCP in the next 1-3 days. I explained that the patient should return to the emergency department if they experience any worsening symptoms. Strict return precautions were discussed with the patient. The patient expressed understanding of these instructions. I answered all questions that the patient had. The patient was discharged home in good condition with their prescriptions and follow up information. Undiagnosed new problem with uncertain prognosis? @ -none Drug Therapy requiring intensive monitoring for toxicity (Heparin, Nitro, Insulin, Cardizem)? @ -none Were any procedures done? @ -none Diagnosis/symptom? @ -Acute on chronic migraines, cluster headaches Acute, or Chronic, or Acute on Chronic? @ -Acute on chronic Uncomplicated (without systemic symptoms) or Complicated (systemic symptoms)? @ -Uncomplicated Side effects of treatment? @ -none Exacerbation, Progression, or Severe Exacerbation] @ -no Poses a threat to life or bodily function? @ -no Disposition Clinical Impression: Migraine Disposition: HOME SELF-CARE Condition: Good Instructions (If sedation given, give patient instructions): Migraine Headache (ED) Is patient prescribed a controlled substance at d/c from ED?: No Referrals: Rishabh Gonzales MD [Primary Care Provider] - 1-2 days Time of Disposition: 15:00
[2022-04-24] MEDS ORDERED: methylPREDNISolone SOD SUCCI 125 MG/2 ML VIAL IV STA (14:24)
[2022-04-24] MEDS ORDERED: MORPHINE SULFATE 4 MG/ML SYRINGE IVP STA (14:24)
[2022-04-24 15:33] VITALS: BP 141/93; PULSE 86
== END 2022-04-24 15:33 | disposition home or self-care (01) ==
LOC: EC 12:27
DX: G43.909 Migraine, unspecified, not intractable, without status migrainosus (principal); F41.9 Anxiety disorder, unspecified; Z88.0 Allergy status to penicillin; Z88.2 Allergy status to sulfonamides
CPT/HCPCS: 99284; 96374; 96375 ×4; 96361; J2270; J1200; J0780; J2930; J1885

== ENCOUNTER → 2023-02-21 | Outpatient (CLI) | payer OTHER ==
[2023-02-21 15:43] LABS: Basophils # (A) 0.03 X 10*3/uL (0.00-0.10); Basophils % (A) 0.6 %; Eosinophils # (A) 0.12 X 10*3/uL (0.04-0.35); Eosinophils % (A) 2.3 %; HCT 42.6 % (37.2-46.3); HGB 14.1 d/dL (12.0-15.0); Lymphocytes # (A) 2.13 X 10*3/uL (0.90-5.00); Lymphocytes % (A) 40.8 %; MCH 29.7 pg (27.0-32.0); MCHC 33.1 d/dL (32.0-37.0); MCV 89.7 FL (80.0-97.0); Monocytes # (A) 0.36 X 10*3/uL (0.20-1.00); Monocytes % (A) 6.9 %; NRBC Per 100 WBC 0 X 10*3/uL (0.00-0.01); Neutrophils # (A) 2.57 X 10*3/uL (1.80-7.70); Neutrophils % (A) 49.2 %; Platelet Count 436 X 10*3/uL (140-440); RBC 4.75 X 10*6/uL (4.10-5.20); RDW 12.9 % (11.5-14.5); WBC 5.22 X 10*3/uL (4.50-10.00)
[2023-02-21 16:05] LABS: ALT 12 U/L (8-44); AST 11 U/L (13-35); Albumin 4.3 d/dL (3.8-4.9); Albumin/Globulin Ratio 1.65 Ratio (1.60-3.17); Alkaline Phosphatase 75 U/L (41-126); Blood Urea Nitrogen 10.8 mg/dL (9.0-27.0); Calcium 9.7 mg/dL (8.7-10.3); Carbon Dioxide 28.8 mmol/L (21.6-31.8); Chloride 103 mmol/L (96-109); Globulin 2.6 d/dL (1.6-3.3); Glucose 95 mg/dL (70-110); Potassium 4.7 mmol/L (3.5-5.5); Sodium 141 mmol/L (135-145); Total Bilirubin <0.2 mg/dL (0.3-1.2); Total Protein 6.9 d/dL (6.2-8.2)
== END | disposition home or self-care (01) ==
LOC: LABWHC1 10:23
PROVIDERS: ATTEND Dermatology
DX: L73.2 Hidradenitis suppurativa (principal)
CPT/HCPCS: 36415; 80053; 85025; 86480

== ENCOUNTER → 2024-03-11 | Outpatient (CLI) | payer OTHER | END | disposition home or self-care (01) | LOC: LABWHC1 16:12 | PROVIDERS: ATTEND Physician Assistant Medical | DX: L73.2 Hidradenitis suppurativa (principal); Z79.899 Other long term (current) drug therapy | CPT/HCPCS: 36415; 86480 ==